=== PATIENT | female | born 1965 | race Caucasian/White ===

== ENCOUNTER 2018-02-19 18:06 | Emergency (ER) | payer MEDICARE, MEDICAID ==
[~2018-02-19] VITALS: Ht 177.8 cm; Wt 86.2 kg
[2018-02-19] MEDS ORDERED: PLAVIX 75 MG TA75 M1 PO (18:17)
[2018-02-19] MEDS ORDERED: AMLODIPINE BESY10 MG PO (18:17)
[2018-02-19] MEDS ORDERED: LINZESS145 MCG PO (18:19)
[2018-02-19] MEDS ORDERED: CALCIUM500 MG PO (18:19)
[2018-02-19] MEDS ORDERED: PRALUENT P75 MG/1 ML SUBQ (18:22)
[2018-02-19] MEDS ORDERED: HYDROCODONE-AP1 EAC6 PO (19:26)
[2018-02-19 20:03] VITALS: BP 171/106
== END 2018-02-19 20:04 | disposition home or self-care (01) ==
LOC: M.ERS 18:06
DX: S52.571A Other intraarticular fracture of lower end of right radius, initial encounter for closed fracture (principal); M79.661 Pain in right lower leg; I10 Essential (primary) hypertension; F17.210 Nicotine dependence, cigarettes, uncomplicated; Z95.5 Presence of coronary angioplasty implant and graft; Z88.8 Allergy status to other drugs, medicaments and biological substances; W18.39XA Other fall on same level, initial encounter; Y93.89 Activity, other specified; Y92.89 Other specified places as the place of occurrence of the external cause; Y99.8 Other external cause status

== ENCOUNTER → 2018-06-08 | Outpatient (CLI) | payer MEDICARE, MEDICAID ==
[~2018-06-08] MED LIST: AMLODIPINE BESY10 MG PO; CALCIUM500 MG PO; HYDROCODONE-AP1 EAC6 PO; LINZESS145 MCG PO; PLAVIX 75 MG TA75 M1 PO; PRALUENT P75 MG/1 ML SUBQ
[2018-06-08 12:42] LABS: ANION GAP 7 mmol/L (7-16); BUN 13 mg/dL (7-18); CALCIUM 9.2 mg/dL (8.5-10.1); CHLORIDE 103 mmol/L (98-107); CHOLESTEROL 155 mg/dL (<200); CO2 27 mmol/L (21-32); CREATININE 0.8 mg/dL (0.6-1.3); GLUCOSE 108 mg/dL (70-99); HDL CHOLESTEROL 46 mg/dL (>40); LDL CHOLESTEROL 84 mg/dL (<100); POTASSIUM 3.9 mmol/L (3.5-5.1); SGOT 18 U/L (15-37); SGPT 23 U/L (30-65); SODIUM 137 mmol/L (136-145); TC:HDL 3.4 Ratio (Not establshd); TRIGLYCERIDE 127 mg/dL (<150); VLDL 25 mg/dL (<40)
[2018-06-08 12:43] LABS: SERUM ASSESSMENT Clear
== END ==
LOC: M.LAB 12:11
PROVIDERS: Internal Medicine Cardiovascular Disease
DX: E78.5 Hyperlipidemia, unspecified (principal); I10 Essential (primary) hypertension; F17.210 Nicotine dependence, cigarettes, uncomplicated

== ENCOUNTER 2020-02-16 16:17 | Emergency (ER) | payer MEDICARE, MEDICAID ==
[~2020-02-16] VITALS: Ht 177.8 cm; Wt 85.3 kg
[2020-02-16] MEDS ORDERED: HYDROCHLOROTHIA25 M2 PO (16:33)
[2020-02-16] MEDS ORDERED: TRIAMTERENE50 MG PO (16:34)
[2020-02-16] MEDS ORDERED: CARVEDILOL6.25 M1 PO (16:34)
[2020-02-16] MEDS ORDERED: DICYCLOMINE HCL10 MG PO (16:34)
[2020-02-16] MEDS ORDERED: NORCO 5-325 TA1 EAC1 PO (17:36)
[2020-02-16 17:50] VITALS: BP 185/110
== END 2020-02-16 17:52 | disposition home or self-care (01) ==
LOC: M.ERS 16:17
DX: S92.354A Nondisplaced fracture of fifth metatarsal bone, right foot, initial encounter for closed fracture (principal); I10 Essential (primary) hypertension; I25.2 Old myocardial infarction; Z88.5 Allergy status to narcotic agent; Z88.8 Allergy status to other drugs, medicaments and biological substances; Z79.899 Other long term (current) drug therapy; Z95.5 Presence of coronary angioplasty implant and graft; W18.30XA Fall on same level, unspecified, initial encounter; Y93.89 Activity, other specified; Y92.34 Swimming pool (public) as the place of occurrence of the external cause; Y99.9 Unspecified external cause status

== ENCOUNTER → 2020-04-03 | Outpatient (CLI) | payer MEDICARE, MEDICAID ==
[~2020-04-03] MED LIST changes: +AMITIZA8 MCG PO; +CARVEDILOL6.25 M1 PO; +COREG3.125 MG PO; +DICYCLOMINE HCL10 MG PO; +HYDROCHLOROTHIA25 M2 PO; +LORCET 5-325 M1 EACH PO; +NORCO 5-325 TA1 EAC1 PO; +PERCOCET 10-321 EAC1 PO; +PROTONIX40 M1 PO; +TRIAMTERENE50 MG PO
== END ==
LOC: M.LAB 09:22
PROVIDERS: ATTEND Orthopaedic Surgery
DX: Z01.818 Encounter for other preprocedural examination (principal); Z11.59 Encounter for screening for other viral diseases; S92.351D Displaced fracture of fifth metatarsal bone, right foot, subsequent encounter for fracture with routine healing

== ENCOUNTER → 2020-04-06 | Day surgery (SDC) | payer MEDICARE, MEDICAID ==
--- NOTE | ~2020-04-06 | OP ---
[address] [address] OPERATIVE REPORT Name: AARON MILLER Room: [facility]#: [id number] Admission: 04/06/20 Attend Phys: oRse Amos DO Discharge: Date of : 63 Report #: [id number] THIS REPORT FOR: //name// cc: Magdalene Romero Michelle RNP ~ THIS REPORT FOR: //name// CC: Rose Romero DATE OF SERVICE: 04/06/2020 Dr. Benita Caballero dictating for Dr. Rose Amos. PREOPERATIVE DIAGNOSIS: Right closed fifth metatarsal shaft fracture, zone 3. POSTOPERATIVE DIAGNOSIS: Right closed fifth metatarsal shaft fracture, zone 3. PROCEDURES PERFORMED: 1. Open reduction and internal fixation of right fifth metatarsal shaft fracture utilizing an Arthrex intramedullary screw. 2. Physician-guided fluoroscopy less than 1 hour. ANTIBIOTICS: Ancef 2 g. TOURNIQUET TIME 20 minutes. IMPLANTS: Arthrex 5.5 x 55 screw. COMPLICATIONS: None. BLOOD LOSS: Minimal. ANESTHESIA: General. REASON FOR PROCEDURE: The patient has had an injury to her right foot, where she had an inversion injury stepping off a curb, Subsequently fracturing the right fifth metatarsal. She was placed in a postoperative shoe and followed for a month. Minimal healing was noted on x-rays and further exam. She continued to have pain and discomfort with ambulation that affected her activities of daily living. She then decided to proceed with surgical intervention. Risks, benefits and alternatives were offered to the patient. Risks include but are not limited to infection, neurovascular injury, decreased motion, stiffness, need for revision procedures, malunion, nonunion, and other imponderables associated with general anesthesia. [address] [address] OPERATIVE REPORT Name: ANGELAAARON L Room: [facility]#: [id number] Admission: 04/06/20 Attend Phys: Rose Amos DO Discharge: Date of : 63 Report #: [id number] DESCRIPTION OF PROCEDURE: The patient was brought to the operative suite. An appropriate timeout was conducted including the operative site, age, allergies of the patient. The patient was placed on her lateral side, utilizing the beanbag. The right foot was then sterilely prepped in the standard fashion. Sterile drapes were then placed over the patient in a standard fashion. C-arm was utilized to get correct reduction of the fracture and the correct starting point. A K-wire was utilized to determine the correct trajectory of the screw placement. The operative incision site was then marked out and a 15 blade scalpel was utilized to cut through subcutaneous tissue. A hemostat was then utilized to feel the starting point of the fifth metatarsal base and the bone. A K-wire was then utilized as a guide placement for the screw. C-arm was used throughout the entire procedure to confirm correct placement of the K-wire. Once the correct K-wire fixation was obtained, a 4.5 tap was used. This was confirmed to be adequate on C-arm. Then, a 5.5 tap was then utilized. C-arm was used to determine the correct screw placement, with threads adequately transversely in the fracture site. The 55 screw measurement was taken to be appropriate. The K-wire was removed and a 5.5 with 55 length screw was then used to correctly reduce the fracture site. C-arm was then used once more to determine correct final fixation of the fracture. The patient was then placed in a well-padded postoperative splint. She will plan to go home today once adequately resuscitated from anesthesia. She is going to be nonweightbearing to the right lower extremity and will follow up in 1 week for reevaluation. DVT prophylaxis, aspirin 325 mg b.i.d. She will be sent home with a prescription of [place]. By: 0850 [id number] Amos DO /kemi
[2020-04-06 07:23] LABS: HEMATOCRIT 40.4 % (37.0-47.0); HEMOGLOBIN 14.2 gm/dL (12.0-15.0); MCH 31.2 pg (26.0-34.0); MCHC 35.2 g/dL (28.0-37.0); MCV 88.7 fL (80.0-100.0); MPV 8.7 fl. (7.2-11.1); RBC 4.55 mil/uL (4.20-5.00); WBC 4.3 thou/uL (4.0-11.0)
[2020-04-06 07:31] LABS: CALCIUM 8.7 mg/dL (8.5-10.1); CREATININE 0.9 mg/dL (0.6-1.3); POTASSIUM 3.9 mmol/L (3.5-5.1)
--- NOTE | 2020-04-06 09:29 | EKG ---
[place] [address] ELECTROCARDIOGRAM REPORT Name: AARON MILLER Room: [facility]#: [id number] Admission: 04/06/20 Attend Phys: Rose Amos DO Discharge: Date of : 63 Date of Service: 04/06/20 0659 Report #: [id number] THIS REPORT FOR: //name// [facility] Test Date: 2020-04-06 Test Time: 06:59:31 Pat Name: AARON MILLER Department: Room: Gender: F Emt Basic: JAKE : 1965 Requested By: Rose Amos Order Number: [id number] Reading MD: Olman Carpio Measurements Intervals [place] Rate: 60 P: 57 [place]: 149 QRS: -2 QRSD: 102 T: 10 QT: 455 QTc: 455 Interpretive Statements Sinus rhythm Consider left atrial enlargement Baseline wander in lead(s) II,aVR,aVF Compared to ECG 07/09/2009 18:37:11 ST (T wave) deviation no longer present Prolonged QT interval no longer present Electronically Signed On 04-06-2020 9:29:37 CDT by Olman Carpio [email or web address] <ELECTRONICALLY SIGNED> By: Olman Carpio MD, [facility] 04/06/20 0929 0659 0659 Olman Carpio MD, FAC /EPI
== END | disposition home or self-care (01) ==
LOC: M.SUR 06:41
PROVIDERS: ATTEND Orthopaedic Surgery
DX: S92.351A Displaced fracture of fifth metatarsal bone, right foot, initial encounter for closed fracture (principal); M25.571 Pain in right ankle and joints of right foot; I10 Essential (primary) hypertension; I25.2 Old myocardial infarction; F17.210 Nicotine dependence, cigarettes, uncomplicated; Z98.890 Other specified postprocedural states; Z79.899 Other long term (current) drug therapy; Z88.8 Allergy status to other drugs, medicaments and biological substances; X58.XXXA Exposure to other specified factors, initial encounter; Y93.89 Activity, other specified; Y92.89 Other specified places as the place of occurrence of the external cause; Y99.8 Other external cause status